=== PATIENT | female | born 1980 | race Caucasian/White ===

== ENCOUNTER 2016-10-03 20:00 | Emergency (ER) | payer MEDICAID ==
[2016-10-03 21:50] LABS: BASOPHILS 0.2 % (0-2); EOSINOPHILS 3.2 % (0-7); HEMATOCRIT 39.8 % (36.0-48.0); HEMOGLOBIN 13.2 g/dL (12-16); IMMATURE GRANULOCYTES 0.3 % (0-5); LYMPHOCYTES 29.3 % (15-50); MCH 31.7 pg (26.0-34.0); MCHC 33.2 g/dL (31.0-37.0); MCV 95.4 fL (80.0-100.0); MEAN PLATELET VOLUME 9.2 fL (7.4-10.4); MONOCYTES 5.3 % (2-11); NEUTROPHILS 61.7 % (40-80); PLATELET COUNT 283 10x3/uL (130-400); RBC 4.17 10x6/uL (4.00-5.40); RDW 12.8 % (11.5-14.5); WBC 12.3 10x3/uL (4.8-10.8)
[2016-10-03 22:15] LABS: ALBUMIN 3.3 g/dL (3.4-5.0); ALKALINE PHOSPHATASE 111 U/L (46-116); ALT (SGPT) 17 U/L (10-68); BILIRUBIN - TOTAL 0.17 mg/dL (0.2-1.3); CALC OSMOLALITY 276 mosm/kg (275-300); CALCIUM 8.4 mg/dL (8.5-10.1); CARBON DIOXIDE 32.1 mmol/L (21.0-32.0); CHLORIDE - SERUM 103 mmol/L (98-107); CREATININE - SERUM 0.7 mg/dL (0.6-1.3); GLUCOSE 84 mg/dL (74-106); POTASSIUM - SERUM 3.9 mmol/L (3.5-5.1); SODIUM 140 mmol/L (136-145); UREA NITROGEN 11 mg/dL (7-18); eGFR NON AFRICAN AMERICAN > 90 mL/min (90-120)
[2016-10-03 22:28] LABS: CHOL - HDL RATIO 5.2 ratio (2.3-4.1); CHOLESTEROL, TOTAL 223 mg/dL (0-200); CREATINE KINASE 56 UL (21-215); HDL CHOLESTEROL 43 mg/dL (32-96); LDL CHOLESTEROL 152 mg/dL (0-100); LDL-HDL RATIO 3.5 ratio (1.5-3.5); TRIGLYCERIDE 143 mg/dL (30-200)
[2016-10-03 22:33] LABS: TROPONIN-I < 0.017 ng/mL (0.000-0.060)
== END 2016-10-03 22:59 | disposition home or self-care (01) ==
LOC: D.ER 20:00
PROVIDERS: Nurse Practitioner Family
DX: R07.89 Other chest pain (principal); R42 Dizziness and giddiness